=== PATIENT | female | born 2000 | race Caucasian/White ===

== ENCOUNTER 2022-07-16 14:40 | Emergency (ER) | payer BC, SELFPAY ==
[2022-07-16 14:52] VITALS: BP 133/95; PULSE 143; RESP 23; TEMP 36.8; O2SAT 99
[2022-07-16 15:07] VITALS: BP 127/89; PULSE 154; RESP 18; O2SAT 99
[2022-07-16 15:09] LABS: Basophils Percent Auto 0.2 % (0.2-1.2); Eosinophils Percent Auto 0.1 % (0-4.4); Hematocrit 42.7 % (37.0-47.0); Hemoglobin 14.5 g/dL (12.0-15.0); Immature Granulocyte Absolute 0.03 K/mm3 (0.00-0.031); Immature Granulocyte Percent A 0.3 % (0-0.5); Lymphocytes Percent Auto 2.7 % (18.3-44.2); Mean Corpuscular Hemoglobin 30.5 pg (26-34); Mean Corpuscular Volume 89.9 fl (80-100); Mean Platelet Volume 11.8 fl (7.4-10.4); Monocytes Absolute Auto 0.4 K/mm3 (0.1-0.6); Monocytes Percent Auto 3.9 % (2.6-8.5); Neutrophils Absolute Auto 10.3 K/mm3 (1.3-6.7); Neutrophils Percent Auto 92.8 % (45.5-73.1); Platelet Count Result 184 k/mm3 (150-375); Red Blood Count 4.75 M/mm3 (4.2-5.4); Red Cell Distribution Width 12.5 % (11.5-14.5); White Blood Count 11.1 K/mm3 (4.5-10.0)
[2022-07-16] MEDS: LACTATED RINGERS 1,000 ML 999 ML IV CONT ×2 (15:12→15:49)
--- NOTE | 2022-07-16 15:17 | ECG_ITS ---
Measurements Intervals [place] Rate: 129 P: 43 PA: 144 QRS: 36 QRSD: 76 T: -4 QT: 334 QTc: 489 Interpretive Statements SINUS TACHYCARDIA ST-T WAVE ABNORMALITY IN ANTEROLATERAL LEADS- CONSIDER ISCHEMIA BASELINE WANDER- II, V4-V6 ABNORMAL ECG NO PREVIOUS ECG AVAILABLE FOR COMPARISON Electronically Signed On 07-16-2022 21:56:43 [employer] by Caden Leal D.O.
[2022-07-16 15:19] LABS: Alanine Aminotransferase 24 U/L (6-35); Albumin Level 4.3 g/dL (3.5-5.1); Alkaline Phosphatase 99 U/L (38-126); Anion Gap 14 mmol/L (8-16); Aspartate Amino Transferase 24 U/L (14-36); Bilirubin,Total 0.9 mg/dL (0.2-1.3); Blood Urea Nitrogen 8 mg/dL (7-17); Calcium 9.1 mg/dL (8.4-10.2); Carbon Dioxide 19 mmol/L (22-30); Chloride 103 mmol/L (98-107); Estimated CRCL calculation 170 ml/min; Estimated Glomerular Filt Rate > 60; Glucose 114 mg/dL (65-110); Lipase 44 U/L (23-300); Potassium 3.5 mmol/L (3.4-5.0); Sodium 136 mmol/L (137-145)
--- NOTE | 2022-07-16 15:22 | ED.NAVMDI ---
HPI - Nausea/Vomiting/Diarrhea General Chief complaint: Nausea/Vomiting/Diarrhea Stated complaint: n/v since 0400, 12 weeks preg Time Seen by Provider: 07/16/22 14:54 History of Present Illness HPI Narrative: Patient is a 21-year-old G1, P0 female who is currently 12 weeks here for evaluation of nausea and vomiting over the past day. Patient states that she has been unable to keep down any p.o. for the past 12 hours. Also notes low-grade fevers at home and slight midline low back pain. Her CANDY SUPERVISOR is Dr. Yudith Norwood. She has had an ultrasound that confirmed IUP. No abdominal pain, diarrhea, vaginal bleeding, sudden gush of fluids. No new or suspicious foods or sick contacts. Related Data Allergies Allergy/AdvReac Type Severity Reaction Status Date / Time No Known Allergies Allergy Verified 07/16/22 15:06 Review of Systems Review of Systems: Gen: Denies fevers or chills Eyes: Denies eye pain or visual change ENT: Denies congestion Respiratory: Denies shortness of breath or cough CV: Denies chest pain or palpitations GI: Reports nausea and vomiting. Denies abdominal pain or diarrhea : denies burning, urgency, frequency or hematuria Musculoskeletal: Denies back pain or muscle pain Neuro: Denies numbness, tingling, weakness or focal weakness Skin: Denies rash Except as documented, all other systems reviewed and negative [facility] Past Medical History Medical History Pain of ulnar side of wrist Right wrist pain Family History Family History (Updated 05/14/21 @ 13:29 by Meche Weber, RT(R)) Other Hypertension Social History Social History (Updated 05/14/21 @ 13:29 by Meche Weber, RT(R)) Smoking status: Never smoker Alcohol intake: current Drinks per week: 6 Exam Narrative: APPEARANCE: Well appearing, no pain in distress, well-nourished. Head: Normocephalic and atraumatic. EYES: PERRLA/EOMI, conjunctivae clear NOSE: No nasal drainage EARS: External ear normal in appearance THROAT: Oropharynx is clear. Mucous membranes are moist. NECK: Supple. No adenopathy, no masses. RESPIRATORY: Airway patent, respirations nonlabored. Clear to auscultation bilaterally, no rales, rhonchi, wheezing. CARDIOVASCULAR: Tachycardic. Regular rhythm without murmurs, rubs, or gallops. ABDOMINAL: Normoactive bowel sounds. Soft, nontender, nondistended. No rebound tenderness or guarding. MUSCULOSKELETAL: Extremities are warm and well-perfused. Moves all extremities well. No edema. NEURO: Normal speech. No focal neurologic deficits. SKIN: Skin is warm and dry. No rashes. PSYCHIATRIC: Normal affect/mood.. Course Vital Signs Vital signs: Vital Signs Temperature 98.2 F 07/16/22 14:52 Pulse Rate 143 H 07/16/22 14:52 Respiratory Rate 23 H 07/16/22 14:52 Blood Pressure 133/95 H 07/16/22 14:52 Pulse Oximetry 99 07/16/22 14:52 Oxygen Delivery Room Air 07/16/22 14:52 Temperature 98.2 F 07/16/22 14:52 Pulse Rate 118 H 07/16/22 15:45 Respiratory Rate 20 07/16/22 15:45 Blood Pressure 121/86 07/16/22 15:45 Pulse Oximetry 100 07/16/22 15:45 Oxygen Delivery Room Air 07/16/22 14:52 MDM - Nausea/Vomiting/Diarrhea MDM Narrative Medical decision making narrative: 21-year-old G1, P0 female who is currently about 12 weeks here for evaluation of nausea and vomiting and low-grade fevers over the past day. No vaginal bleeding, abdominal pain or sudden gush of fluids. Patient arrives nontoxic-appearing but tachycardic in the 140s, afebrile. Patient is in sinus tachycardia on the EKG. She was given 2 L of fluids, Reglan and Benadryl with improvement of her symptoms; tolerating p.o. bedside ultrasound [place] [id number]. She has a white count of 11.1 and findings concerning for UTI on her urinalysis with 2+ leuks, white blood cells, 2+ blood. She also has 4+ ketones in her urine.
[2022-07-16 15:24] LABS: Appearance Urine Slightly Cloudy (Clear); Bilirubin Urine 1+ (Negative); Blood Urine 2+ (Negative); Color Urine Yellow (Yellow); Glucose Urine UA Negative (Negative); Ketones Urine 4+ mg/dL (Negative); Leukocyte Esterase Ur 2+ LEU/UL (Negative); Nitrate Urine Negative (Negative); Protein Urine 1+ mg/dL (Negative); Specific Grav Ur >= 1.030 (1.001-1.035)
[2022-07-16 15:38] LABS: Mucus Urine Heavy /lpf; RBC Urine 21-50 /hpf (0-2); Squamous Epithelial Cell Urine Many /hpf (Few); WBC Urine 21-30 /hpf
[2022-07-16] MEDS: diphenhydrAMINE HCl INJ 50 MG/ML VIAL 25 MG IV PUSH (15:38)
[2022-07-16] MEDS: METOCLOPRAMIDE HCL INJ 10 MG/2 ML VIAL IV PUSH (15:38)
[2022-07-16 15:40] LABS: Add Urine Microscopic? YES
[2022-07-16 15:45] VITALS: BP 121/86; PULSE 118; RESP 20; O2SAT 100
[2022-07-16 16:19] LABS: Influenza A QL RT-PCR Negative (Negative); Influenza B QL RT-PCR Negative (Negative); SARS-CoV-2 RNA PCR Negative
[2022-07-16 18:15] VITALS: BP 115/75; PULSE 110; RESP 16; O2SAT 100
== END 2022-07-16 18:30 | disposition home or self-care (01) ==
PROVIDERS: Emergency Medicine; Emergency Provider Physician Assistant; PCP Pediatrics
DX: O23.41 Unspecified infection of urinary tract in pregnancy, first trimester (principal); Z20.822 Contact with and (suspected) exposure to COVID-19; Z3A.12 12 weeks gestation of pregnancy
CPT/HCPCS: 36415; 80053; 81001; 83690; 84702; 85025; 87086; 87636; 93005; 96361; 96365; 96367; 96375; 99284; J0131; J0696; J1200; J2765; J7120

== ENCOUNTER 2023-01-12 10:09 | Outpatient (CLI) | payer BC, SELFPAY ==
[2023-01-12] VITALS (9 sets, daily range): BP systolic 132–149; BP diastolic 89–102; PULSE 71–91; RESP 18; TEMP 35.9; BMI 37.0
[2023-01-12 10:53] LABS: Basophils Percent Auto 0.1 % (0.2-1.2); Eosinophils Absolute Auto 0.1 K/mm3 (0-0.3); Eosinophils Percent Auto 0.7 % (0-4.4); Hematocrit 35.6 % (37.0-47.0); Hemoglobin 11.8 g/dL (12.0-15.0); Immature Granulocyte Absolute 0.03 K/mm3 (0.00-0.031); Immature Granulocyte Percent A 0.4 % (0-0.5); Lymphocytes Absolute Auto 1.43 K/mm3 (0.9-3.2); Lymphocytes Percent Auto 16.8 % (18.3-44.2); Mean Corpuscular HGB Conc 33.1 g/dl (32-36); Mean Corpuscular Hemoglobin 29.8 pg (26-34); Mean Corpuscular Volume 89.9 fl (80-100); Mean Platelet Volume 12.3 fl (7.4-10.4); Monocytes Absolute Auto 0.7 K/mm3 (0.1-0.6); Monocytes Percent Auto 8.2 % (2.6-8.5); Neutrophils Absolute Auto 6.3 K/mm3 (1.3-6.7); Neutrophils Percent Auto 73.8 % (45.5-73.1); Platelet Count Result 164 k/mm3 (150-375); Red Blood Count 3.96 M/mm3 (4.2-5.4); Red Cell Distribution Width 11.9 % (11.5-14.5); White Blood Count 8.5 K/mm3 (4.5-10.0)
[2023-01-12 11:06] LABS: Alanine Aminotransferase 31 U/L (6-35); Albumin Level 3.4 g/dL (3.5-5.1); Alkaline Phosphatase 248 U/L (38-126); Anion Gap 4 mmol/L (8-16); Aspartate Amino Transferase 27 U/L (14-36); Bilirubin,Total 0.5 mg/dL (0.2-1.3); Blood Urea Nitrogen 6 mg/dL (7-17); Calcium 8.7 mg/dL (8.4-10.2); Carbon Dioxide 23 mmol/L (22-30); Chloride 106 mmol/L (98-107); Estimated Glomerular Filt Rate > 60; Glucose 86 mg/dL (65-110); Potassium 3.9 mmol/L (3.4-5.0); Sodium 133 mmol/L (137-145); Uric Acid 4.4 mg/dL (2.5-7.5)
[2023-01-12 11:34] LABS: Appearance Urine Clear (Clear); Bacteria Urine None Seen /hpf; Bilirubin Urine Negative (Negative); Blood Urine 2+ (Negative); Color Urine Yellow (Yellow); Glucose Urine UA Negative (Negative); Ketones Urine Trace mg/dL (Negative); Leukocyte Esterase Ur 2+ LEU/UL (NEGATIVE); Nitrate Urine Negative (Negative); Non Pathogenic Casts 0-2; Protein Urine Negative (Negative); RBC Urine 0-2 /hpf (0-2); Specific Grav Ur 1.012 (1.001-1.035); Squamous Epithelial Cell Urine Occasional /hpf (Few); pH Urine 7.5 (5.0-9.0)
[2023-01-12 11:37] LABS: Creatinine Urine 83.7 mg/dL; Total Protein Urine Random 10 mg/dL; Ur Ttl Prot Creatinine Ratio 0.12 mg/mg (0-0.20)
[2023-01-12 11:44] LABS: Add Urine Microscopic? YES
--- NOTE | 2023-01-12 11:54 | PC.NURSE ---
Dr. Yudith Norwood informed of reactive NST, BP's, and lab results. Orders for discharge received. Pt to stop working.
--- NOTE | 2023-01-12 12:16 | PM.OBTRLD ---
OB - Triage/Final Diagnosis Visit Information Date of evaluation: 01/12/23 Reason for evaluation: other (htn) Comments/Additional reasons for admission: I have assessed the risk for this patient, Ana Yeung, and determined that she would benefit from observation care. Evaluation Laboratory results: Laboratory Tests 01/12/23 10:38 WBC 8.5 RBC 3.96 L Hgb 11.8 L Hct 35.6 L MCV 89.9 MCH 29.8 MCHC 33.1 RDW 11.9 Plt Count 164 MPV 12.3 H Immature Gran % (Auto) 0.4 Neut % (Auto) 73.8 H Lymph % (Auto) 16.8 L Wheeler % (Auto) 8.2 Eos % (Auto) 0.7 Baso % (Auto) 0.1 L Lymph # (Auto) 1.43 Wheeler # (Auto) 0.7 H Eos # (Auto) 0.1 Baso # (Auto) 0.0 Abs Immat Gran (auto) 0.03 Absolute Neuts (auto) 6.3 Absolute Nucleated RBC 0.0 Nucleated RBC % 0.0 Sodium 133 L Potassium 3.9 Chloride 106 Carbon Dioxide 23 Anion Gap 4 L BUN 6 L Creatinine 0.50 L Estim Creat Clear Calc Not Reportable Estimated GFR > 60 Glucose 86 Uric Acid 4.4 Calcium 8.7 Total Bilirubin 0.5 AST 27 ALT 31 Alkaline Phosphatase 248 H Total Protein 7.0 Albumin 3.4 L Urine Color Yellow Urine Appearance Clear Urine pH 7.5 Ur Specific [place] 1.012 Urine Protein Negative Urine Glucose (UA) Negative Urine Ketones Trace H Ur Blood (Man) 2+ H Urine Nitrate Negative Urine Bilirubin Negative Urine Urobilinogen 1.0 Ur Leukocyte Esterase 2+ H Urine RBC 0-2 Urine WBC 11-20 H Ur Squamous Epith Cells Occasional Urine Bacteria None seen Urine Casts 0-2 U Random Total Protein 10 Urine Creatinine 83.7 Vital signs: Vital Signs - 24 hr 01/12/23 10:38 01/12/23 10:46 01/12/23 11:01 Temperature Pulse Rate 71 82 75 Respiratory Rate Blood Pressure 146/91 H 140/90 149/93 H Blood Pressure [Left Arm] 01/12/23 11:16 01/12/23 11:30 01/12/23 11:45 Temperature Pulse Rate 89 79 83 Respiratory Rate Blood Pressure 139/102 H 144/89 H 132/89 Blood Pressure [Left Arm] 01/12/23 12:00 01/12/23 11:00 01/12/23 11:00 Temperature 96.6 F L Pulse Rate 91 78 Respiratory Rate 18 Blood Pressure 136/91 H Blood Pressure [Left Arm] 149/93 H 01/12/23 11:17 Temperature Pulse Rate 83 Respiratory Rate Blood Pressure Blood Pressure [Left Arm] 139/102 H
== END 2023-01-12 12:10 | disposition home or self-care (01) ==
LOC: ANHOBOP 10:14 → ANHOBPP 11:58
PROVIDERS: Visit Provider Obstetrics & Gynecology
DX: O16.9 Unspecified maternal hypertension, unspecified trimester (principal)
CPT/HCPCS: 36415; 59025; 80053; 81001; 82570; 84156; 84550; 85025; 87086; 99199

== ENCOUNTER 2023-01-18 05:50 | Inpatient (IN) | payer BC, SELFPAY ==
[2023-01-18] VITALS (147 sets, daily range): BP systolic 108–177; BP diastolic 45–128; PULSE 67–174; RESP 16; TEMP 36.4–37.8; O2SAT 93–100; BMI 36.6
--- NOTE | 2023-01-18 06:07 | PM.IMHP ---
H&P: HPI History of Present Illness Date/Time: 01/18/23 06:07 Chief Complaint: Gestational hypertension at term Narrative: a 22-year-old 1 para 0 with early visit confirming dates presenting at 39 weeks gestation for induction of labor. Blood pressures have been elevated. She has no headaches or blurred vision and labs have normal. They will be redrawn this. She is negative for group B strep PMFSH Past Medical History Medical History Pain of ulnar side of wrist Right wrist pain Family History Family History Father Hypertension Social History Social History Smoking status: Never smoker Alcohol intake: current Drinks per week: 6 Substance use: never Spiritual care concerns: No Meds Home Medications and Allergies Home Medications Medication Instructions Recorded Confirmed Type ergocalciferol (vitamin D2) 1,250 1,250 mcg PO WEEKLY 12/29/22 01/12/23 History mcg (50,000 unit) capsule (Vitamin D2) vit no.95-ferrous 1 tablet PO DAILY 12/29/22 01/12/23 History fumarate 28 mg-folic acid 800 mcg tablet () Allergies Allergy/AdvReac Type Severity Reaction Status Date / Time No Known Allergies Allergy Verified 07/16/22 15:06 Exam Const: General: cooperative, healthy appearing, comfortable and overweight Orientation/consciousness: oriented to person, oriented to place and oriented to time HENMT: Head: normal to inspection Resp: Effort & Inspection: normal respiratory effort Cardio: Rate: regular rate Rhythm: regular rhythm Heart sounds: S1 normal heart sound present and S2 normal heart sound present GI: Inspection: normal to inspection ( gravid soft uterus) Auscultation: normal bowel sounds : External Female Exam: normal external appearance Speculum Exam - Vagina: normal appearance of the vagina Speculum Exam - Cervix: normal appearance of the cervix ( 3/50/-2. FHTs reassuring) Assessment and Plan Assessment and plan (1) Term : Code(s): Z34.90 - Encounter for supervision of normal , unspecified, unspecified trimester Status: Acute (2) Gestational hypertension: Code(s): O13.9 - Gestational [-induced] hypertension without significant proteinuria, unspecified trimester Status: Acute Plan medical induction of labor. Spontaneous vaginal delivery is expected. She has an epidural candidate. PIH labs will be redrawn
[2023-01-18 06:45] LABS: Basophils Percent Auto 0.2 % (0.2-1.2); Eosinophils Absolute Auto 0.1 K/mm3 (0-0.3); Eosinophils Percent Auto 0.7 % (0-4.4); Hematocrit 35.1 % (37.0-47.0); Hemoglobin 11.6 g/dL (12.0-15.0); Immature Granulocyte Absolute 0.04 K/mm3 (0.00-0.031); Immature Granulocyte Percent A 0.4 % (0-0.5); Lymphocytes Absolute Auto 2.22 K/mm3 (0.9-3.2); Lymphocytes Percent Auto 20.3 % (18.3-44.2); Mean Corpuscular Hemoglobin 30.1 pg (26-34); Mean Corpuscular Volume 91.2 fl (80-100); Mean Platelet Volume 12.4 fl (7.4-10.4); Monocytes Percent Auto 9.2 % (2.6-8.5); Neutrophils Absolute Auto 7.6 K/mm3 (1.3-6.7); Neutrophils Percent Auto 69.2 % (45.5-73.1); Platelet Count Result 156 k/mm3 (150-375); Red Blood Count 3.85 M/mm3 (4.2-5.4); Red Cell Distribution Width 12.2 % (11.5-14.5); White Blood Count 10.9 K/mm3 (4.5-10.0)
[2023-01-18 07:04] LABS: Alanine Aminotransferase 27 U/L (6-35); Albumin Level 3.4 g/dL (3.5-5.1); Alkaline Phosphatase 254 U/L (38-126); Anion Gap 5 mmol/L (8-16); Aspartate Amino Transferase 27 U/L (14-36); Bilirubin,Total 0.5 mg/dL (0.2-1.3); Blood Urea Nitrogen 8 mg/dL (7-17); Calcium 9.5 mg/dL (8.4-10.2); Carbon Dioxide 23 mmol/L (22-30); Chloride 105 mmol/L (98-107); Estimated CRCL calculation 171 ml/min; Estimated Glomerular Filt Rate > 60; Glucose 95 mg/dL (65-110); Sodium 133 mmol/L (137-145)
[2023-01-18] MEDS: OXYTOCIN 30 UNITS/NS 500 ML 30 UNITS/500 ML BAG 6 UNITS IV CONT (07:55)
[2023-01-18] MEDS: LACTATED RINGERS 1,000 ML 125 ML IV CONT ×2 (07:56→17:46)
[2023-01-18 11:17] LABS: Uric Acid 4.6 mg/dL (2.5-7.5)
[2023-01-18] MEDS: LACTATED RINGERS 500 ML 999 ML IV CONT (11:47)
--- NOTE | 2023-01-18 12:46 | PM.OBPNLAB ---
Pain Control Date/time seen: 01/18/23 12:46 Pain control: tolerating well and epidural Pelvic Exam Dilation (cm): 4 Effacement (%): 80 station: -1 Amniotic membrane status: Leaking Comments: bp labile
[2023-01-18] MEDS: ONDANSETRON INJ 4 MG/2 ML VIAL IV PUSH (13:58)
[2023-01-18 15:56] LABS: Rapid Plasma Reagin Non-Reactive (NonReactive)
--- NOTE | 2023-01-18 16:03 | PM.OBPNLAB ---
Pain Control Date/time seen: 01/18/23 16:03 Pain control: tolerating well and epidural Pelvic Exam Dilation (cm): 7 Effacement (%): 100 station: -1 Amniotic membrane status: Leaking
[2023-01-18] MEDS: CALCIUM CARBONATE (TUMS) 500 MG (200 MG ELEMENTAL) (19:20)
--- NOTE | 2023-01-18 20:13 | PM.OBPNLAB ---
Pain Control Date/time seen: 01/18/23 20:13 Pain control: tolerating well and epidural Pelvic Exam Dilation (cm): 10 Effacement (%): 100 station: +2 Amniotic membrane status: Leaking
--- NOTE | 2023-01-18 21:12 | P.PCNOB_ITS ---
OB - Delivery Note Procedure Delivery date: 01/18/23 Procedure: mil Events: Gestational Hypertension Induction method: AROM Delivery augmentation: Pitocin Delivery monitor: External FHT and Internal Uterine Route of delivery: forceps (outlet) Episiotomy description: None Laceration Description: Perineal - 1st Degree Delivery repair: vicryl Quantitative Blood Loss (ml): 60 Anesthesia type: Epidural Disposition: Floor [place] Baby Date of : 01/18/23 Time of : 20:58 Weeks of gestation at delivery: 39 gender: Male Weight (pounds): 6 Weight (ounces): 15 presentation: vertex position: Right Occiput Anterior Cord Vessel Description: 3 Vessels score five minutes: 6 score ten minutes: 9
[2023-01-18] MEDS: OXYTOCIN 30 UNITS/NS 500 ML 30 UNITS/500 ML BAG 999 UNITS IV CONT (21:17)
[2023-01-18] MEDS: OXYTOCIN 30 UNITS/NS 500 ML 30 UNITS/500 ML BAG 125 UNITS IV CONT (21:51)
[2023-01-18] MEDS: BENZOCAINE 20% AER SPR (*SP) 56 GM CAN 1 SPRAY TOPICAL (23:28)
[2023-01-18] MEDS: WITCH HAZEL 40 PADS 1 PAD TOPICAL (23:28)
--- NOTE | 2023-01-18 23:50 | OBPPTRN ---
Patient transferred to post room #286 via wheelchair. Support person present. Oriented to unit, room, information board, rooming in, admission packet and security measures. Patient verbalizes understanding. with patient.
[2023-01-19] MEDS: IBUPROFEN 600 MG TABLET PO ×3 (00:15→17:54)
[2023-01-19] MEDS: ACETAMINOPHEN 325 MG TABLET 650 MG PO ×3 (03:56→17:53)
[2023-01-19 04:00] VITALS: BP 140/75; PULSE 84; RESP 16; TEMP 36.6; O2SAT 99
[2023-01-19 05:05] LABS: Hematocrit 29.9 % (37.0-47.0); Hemoglobin 9.8 g/dL (12.0-15.0)
--- NOTE | 2023-01-19 07:15 | PC.NURSE ---
PT introductions made and plan of care discussed per post , pain management, bottle feeding, daily care activities. PT sole recipient of such instructions and no barriers to learning identified at this time. PT received such instructions per one to one discussion, mom baby care guide and demonstrations this shift. PT verbalized understanding of such care.
--- NOTE | 2023-01-19 07:18 | PM.DS ---
DS: Admitting Diagnosis Discharge Date 01/20/2023 Admitting Diagnosis Term /gestational hypertension DS: Discharge Diagnosis Discharge Diagnosis (1) Gestational hypertension: Code(s): O13.9 - Gestational [-induced] hypertension without significant proteinuria, unspecified trimester Status: Acute (2) Term : Code(s): Z34.90 - Encounter for supervision of normal , unspecified, unspecified trimester Status: Acute DS: Summary Hospital Course Reason for hospitalization: induction of labor 39 weeks Hospital Course: patient underwent successful medical induction of labor on 01/18/2023. Her hospital course was unremarkable. Her blood pressures remained stable. She was up, breast-feeding, ambulating, voiding without difficulty, eating regular diet, and generally without complaints Time Spent with Patient Time attestation: Total time spent providing and/or coordinating discharge services: Exam Const: General: cooperative, healthy appearing, comfortable and well groomed Orientation/consciousness: oriented to person, oriented to place and oriented to time HENMT: Head: normal to inspection Resp: Effort & Inspection: normal respiratory effort Cardio: Rate: regular rate Rhythm: regular rhythm Heart sounds: S1 normal heart sound present and S2 normal heart sound present GI: Inspection: normal to inspection ( fundus firm below the umbilicus) DS: Data Data Completed and Pending Labs on day of discharge: Labs from last 24 hours 01/19/23 01/18/23 01/18/23 04:01 09:54 06:39 Hgb 9.8 L Hct 29.9 L Uric Acid 4.6 RPR Non-reactive Blood Type A Positive Antibody Screen Negative Discharge Plan Discharge Attending physician on discharge: Enmanuel Aranda Discharging Clinician: Enmanuel Aranda Patient Disposition: Home, Self-Care Activity: may shower, no straining and pelvic rest Diet: heart healthy Wound Care Instructions: follow printed instructions Patient Instructions: Antibiotic Form Stand Alone Forms: General Discharge Information Follow-up/Referrals: Enmanuel Aranda MD [Physician] - Discharge Medications: Continued ergocalciferol (vitamin D2) [Vitamin D2] 1,250 mcg (50,000 unit) Capsule 1,250 mcg PO WEEKLY PNV cmb#95-ferrous fumarate-FA [] 28 mg iron- 800 mcg Tablet 1 tablet PO DAILY Date of admission: 01/18/23 05:50 Primary Care Provider: PHYSICIAN,TRIM MACHINE ADJUSTER Admitting Provider: Enmanuel Aranda Attending physician on admission: Enmanuel Aranda Condition: Stable
--- NOTE | 2023-01-19 07:20 | PM.OBPNVD ---
OB - PN: Subj Subjective Date/time seen: 01/19/23 07:20 Patient comments: no complaints and pain well controlled baby status: doing well OB - PN: Obj Data Labs 01/19/23 04:01 01/18/23 06:39 Labs: Laboratory Results - last 24 hr 01/18/23 01/18/23 01/19/23 06:39 09:54 04:01 Hgb 9.8 L Hct 29.9 L Uric Acid 4.6 RPR Non-reactive Blood Type A Positive Antibody Screen Negative OB - PN A/P Plan day: 1 Plan: routine care Time Spent With Patient Time: Total time spent is greater than 50% in coordination of care (as documented) at patient's floor/unit and/or counseling patient: Time with patient: less than 15 minutes Exam Const: General: cooperative, healthy appearing and comfortable Nutritional Appearance: average body habitus Orientation/consciousness: oriented to person, oriented to place and oriented to time HENMT: Head: normal to inspection Resp: Effort & Inspection: normal respiratory effort Cardio: Rate: regular rate Rhythm: regular rhythm Heart sounds: S1 normal heart sound present and S2 normal heart sound present GI: Inspection: normal to inspection ( fundus firm below the umbilicus) Auscultation: normal bowel sounds : External Female Exam: normal external appearance Speculum Exam - Vagina: normal appearance of the vagina
[2023-01-19 07:30] VITALS: BP 126/83; PULSE 83; RESP 16; TEMP 36.7; O2SAT 98
--- NOTE | 2023-01-19 07:52 | WPDANLDPN2 ---
Anes-Prog Note L&D Date/Time: 01/19/23 07:52 Comfortable throughout: labor and delivery Neuraxial method: epidural Epidural/Spinal procedure site: clean & non-tender Neuro status: Neuro function grossly intact. Cardiovascular status: normal Respiratory status: normal Airway patency: baseline Mental status: baseline Post-Op hydration status: normal Vital Signs: Last Vital Signs Temp 36.6 C 01/19/23 04:00 Pulse 84 01/19/23 04:00 Resp 16 01/19/23 04:00 BP 140/75 01/19/23 04:00 Pulse Ox 99 01/19/23 04:00 O2 Del Method Room Air 01/18/23 23:50 Pain score (VAS): 1 I/O: Intake & Output 01/18/23 01/18/23 01/19/23 15:59 23:59 07:59 Intake Total 1000 240 Output Total 240 Balance 1000 0 Post-procedural complaints: none Patient feedback: Patient satisfied with anesthetic care.
[2023-01-19 11:30] VITALS: PULSE 83; RESP 16; O2SAT 98
[2023-01-19] MEDS: MULTIVIT/MIN/PREN/FOL AC/IRON TABLET 1 TAB PO (11:45)
[2023-01-19] MEDS: POLYSACCHARIDE IRON COMPLEX 150 MG CAPSULE PO ×2 (11:45→17:54)
[2023-01-19] MEDS: DOCUSATE SODIUM 100 MG CAPSULE PO ×2 (11:45→17:54)
[2023-01-19] MEDS: TETANUS,DIPHTHERIA,AC PERTUSSIS ADULT (0.5 ML) BOOSTRIX IM (11:46)
[2023-01-19 12:50] VITALS: BP 128/91; PULSE 76; RESP 18; TEMP 36.9; O2SAT 99
[2023-01-19 21:15] VITALS: BP 140/93; PULSE 75; RESP 16; TEMP 36.9; O2SAT 100
[2023-01-20] MEDS: IBUPROFEN 600 MG TABLET PO ×2 (01:30→09:33)
--- NOTE | 2023-01-20 05:49 | PM.OBPNVD ---
OB - PN: Subj Subjective Date/time seen: 01/20/23 05:49 Patient comments: no complaints and pain well controlled baby status: doing well OB - PN: Obj Data Labs 01/19/23 04:01 01/18/23 06:39 OB - PN A/P Plan day: 2 Plan: routine care, discharge home and follow up 6 weeks Time Spent With Patient Time: Total time spent is greater than 50% in coordination of care (as documented) at patient's floor/unit and/or counseling patient: Time with patient: less than 15 minutes Exam Const: General: cooperative, healthy appearing and comfortable Orientation/consciousness: oriented to person, oriented to place and oriented to time Resp: Effort & Inspection: normal respiratory effort Cardio: Rate: regular rate Rhythm: regular rhythm Heart sounds: S1 normal heart sound present and S2 normal heart sound present GI: Inspection: normal to inspection ( fundus firm below umbilicus)
[2023-01-20 09:10] VITALS: BP 137/84; PULSE 85; RESP 18; TEMP 36.7; O2SAT 100
[2023-01-20] MEDS: POLYSACCHARIDE IRON COMPLEX 150 MG CAPSULE PO (09:33)
[2023-01-20] MEDS: DOCUSATE SODIUM 100 MG CAPSULE PO (09:33)
--- NOTE | 2023-01-20 10:23 | PC.NURSE ---
Patient viewed the discharge video Mother & Baby Care, The First Two Weeks . Patient was given the opportunity and encouraged to ask questions. Patient verbalized understanding of information shared and has been given the mother/baby guide for home reference.
[2023-01-21 08:19] VITALS: BP 137/86; PULSE 80; RESP 18; TEMP 36.6; O2SAT 100
== END 2023-01-20 12:40 | disposition home or self-care (01) | DRG 807 ==
LOC: ANHLDR 05:59 → ANHOB2 01-19 00:36
PROVIDERS: Admitting Provider Obstetrics & Gynecology; Visit Provider Obstetrics & Gynecology
DX: O13.4 Gestational [pregnancy-induced] hypertension without significant proteinuria, complicating childbirth (principal); Z37.0 Single live birth; O70.0 First degree perineal laceration during delivery; Z3A.39 39 weeks gestation of pregnancy
CPT/HCPCS: 36415; 80053; 84550; 85014; 85018; 85025; 86592; 86850; 86900; 86901; 90715; A9270; J2405; J2590; J2795; J7120

== ENCOUNTER 2023-06-06 20:23 | Emergency (ER) | payer BC, SELFPAY ==
--- NOTE | ~2023-06-06 | XR_ITS ---
EXAMINATION: XR chest 1V portable DATE: 06/06/2023 22:56 INDICATION: Cough and fever. TECHNIQUE: A single frontal view of the chest was obtained. COMPARISON: None. FINDINGS: There is no pneumonia, pleural effusion, or pneumothorax. The heart size is normal. IMPRESSION: 1. No acute cardiopulmonary disease. Reviewed, dictated and finalized at location E.
[2023-06-06 20:31] VITALS: BP 159/80; PULSE 102; RESP 20; TEMP 38.9; O2SAT 100
[2023-06-06 21:10] LABS: Strep Group A RT-PCR NOT DETECTED (Negative)
[2023-06-06 21:21] LABS: Influenza A QL RT-PCR Negative (Negative); Influenza B QL RT-PCR Negative (Negative); RSV RNA, RT-PCR Negative (Negative); SARS-CoV-2 RNA PCR Negative (Negative)
[2023-06-06 22:10] VITALS: BP 121/88; PULSE 118; RESP 14; O2SAT 100
[2023-06-06 22:25] LABS: Glucose Point of Care 110 mg/dl (65-105)
--- NOTE | 2023-06-06 22:46 | ED.GENADULT ---
HPI - General Adult General Chief complaint: Upper Respiratory Infection Stated complaint: fever with ST - negative home covid test Time Seen by Provider: 06/06/23 22:16 Source: patient Mode of arrival: ambulatory Limitations: no limitations History of Present Illness HPI narrative: This is a 22-year-old female who presents to the ED with chief complaint of URI symptoms for the past 24 hours. Reports around 7:00 last night she started sore throat and feeling slight malaise. Reports she also started to develop fevers with very temporary relief with ibuprofen/Tylenol. States she was around someone with COVID last week and had a negative COVID test. Denies abdominal pain, chest pain, shortness of breath, urinary problems, headache, neck pain. Related Data Home Medications Medication Instructions Recorded Confirmed ergocalciferol (vitamin D2) 1,250 1,250 mcg PO WEEKLY 12/29/22 01/12/23 mcg (50,000 unit) capsule (Vitamin D2) vit no.95-ferrous 1 tablet PO DAILY 12/29/22 01/12/23 fumarate 28 mg-folic acid 800 mcg tablet () Allergies Allergy/AdvReac Type Severity Reaction Status Date / Time No Known Allergies Allergy Verified 06/06/23 20:24 Review of Systems Review of Systems: All systems as dictated in [facility] Past Medical History Medical History Pain of ulnar side of wrist Right wrist pain Family History Family History Father Hypertension Social History Social History Smoking status: Never smoker Second hand tobacco smoke exposure: No Alcohol intake: current Drinks per week: 6 Substance use: never Lack of Transportation: No Lack of Food: Never True Current Housing: I Have Housing Concerned About Future Housing: No Difficulty Paying Gas/Electric Bills: No Difficulty Paying for Meds: No Currently Unemployed: No Education: Trade/Vocational Certificate Difficulty w/ Childcare or Family Care: No Spiritual care concerns: No Exam Narrative: GENERAL: Well-appearing, well-nourished, and in no acute distress. HEAD: Normocephalic, atraumatic. EYES: PERRLA and EOMI. ENT: Mild posterior pharynx erythema without exudate. Mild tonsillar hypertrophy bilaterally. Uvula midline. Floor of mouth intact. No drooling or trismus. No muffled voice Nares clear, no rhinorrhea or epistaxis. Mucous membranes moist. Oropharynx without tonsillar hypertrophy exudate or other lesions. NECK: Supple. No adenopathy or masses. CHEST: No respiratory distress. Clear to auscultation. No wheezes rales or rhonchi HEART: Regular rate and rhythm. No murmur heard. Normal peripheral pulses. ABDOMEN: Soft, nontender, nondistended, normal active bowel sounds. MSK: Normal range of motion. No edema. SKIN: Warm, dry, no rash. NEURO: Alert and oriented x3. No focal deficits. PSYCH: Normal mood and affect. Course Course Emergency Course: Reevaluation 0030: Patient feeling better and is ready to go home Vital Signs Vital signs: Vital Signs Temperature 102.0 F H 06/06/23 20:31 Pulse Rate 102 H 06/06/23 20:31 Respiratory Rate 20 06/06/23 20:31 Blood Pressure 159/80 H 06/06/23 20:31 Pulse Oximetry 100 06/06/23 20:31 Oxygen Delivery Room Air 06/06/23 20:31 Temperature 100.6 F H 06/06/23 23:12 Pulse Rate 100 06/07/23 01:00 Respiratory Rate 14 06/07/23 01:00 Blood Pressure 117/83 06/07/23 01:00 Pulse Oximetry 99 06/07/23 01:00 Oxygen Delivery Room Air 06/06/23 20:31 Medical Decision Making [facility] Narrative Medical decision making narrative: This is a 22-year-old female who presents to the ED with chief complaints of sore throat and fevers. Vitals show initial slight tachycardia and febrile to 102.0 ?F. Exam shows mildly erythematous posterior oropharynx bu
[2023-06-06] MEDS: ACETAMINOPHEN 325 MG TABLET 650 MG PO (23:10)
[2023-06-06] MEDS: SODIUM CHLORIDE 0.9% IV 1,000 ML 999 ML IV CONT ×2 (23:11→23:27)
[2023-06-06 23:12] VITALS: BP 121/84; PULSE 114; RESP 14; TEMP 38.1; O2SAT 100
[2023-06-06 23:18] LABS: Basophils Percent Auto 0.1 % (0.2-1.2); Hematocrit 40.1 % (37.0-47.0); Hemoglobin 12.5 g/dL (12.0-15.0); Immature Granulocyte Absolute 0.04 K/mm3 (0.00-0.031); Immature Granulocyte Percent A 0.5 % (0-0.5); Lymphocytes Absolute Auto 0.79 K/mm3 (0.9-3.2); Lymphocytes Percent Auto 10.1 % (18.3-44.2); Mean Corpuscular HGB Conc 31.2 g/dl (32-36); Mean Corpuscular Hemoglobin 27.4 pg (26-34); Mean Corpuscular Volume 87.7 fl (80-100); Monocytes Absolute Auto 1.3 K/mm3 (0.1-0.6); Monocytes Percent Auto 16.1 % (2.6-8.5); Neutrophils Absolute Auto 5.7 K/mm3 (1.3-6.7); Neutrophils Percent Auto 73.2 % (45.5-73.1); Platelet Count Result 189 k/mm3 (150-375); Red Blood Count 4.57 M/mm3 (4.2-5.4); Red Cell Distribution Width 13.6 % (11.5-14.5); White Blood Count 7.8 K/mm3 (4.5-10.0)
[2023-06-06 23:30] LABS: Alanine Aminotransferase 40 U/L (6-35); Albumin Level 4.3 g/dL (3.5-5.1); Alkaline Phosphatase 80 U/L (38-126); Anion Gap 10 mmol/L (8-16); Aspartate Amino Transferase 45 U/L (14-36); Bilirubin,Total 0.9 mg/dL (0.2-1.3); Blood Urea Nitrogen 10 mg/dL (7-17); Carbon Dioxide 22 mmol/L (22-30); Chloride 102 mmol/L (98-107); Estimated CRCL calculation 136 ml/min; Estimated Glomerular Filt Rate > 60; Glucose 106 mg/dL (65-110); Potassium 3.8 mmol/L (3.4-5.0); Sodium 134 mmol/L (137-145)
[2023-06-07 00:11] VITALS: BP 118/74; PULSE 110; RESP 14; O2SAT 100
[2023-06-07 00:13] LABS: Monoscreen Negative (Negative); Negative Monotest Control Negative (Negative); Positive Monotest Control Positive (Positive)
[2023-06-07 01:00] VITALS: BP 117/83; PULSE 100; RESP 14; O2SAT 99
== END 2023-06-07 01:00 | disposition home or self-care (01) ==
PROVIDERS: Student in an Organized Health Care Education/Training Program; Emergency Provider Physician Assistant
DX: J06.9 Acute upper respiratory infection, unspecified (principal); Z20.822 Contact with and (suspected) exposure to COVID-19
CPT/HCPCS: 36415; 71045; 80053; 82948; 85025; 86308; 87637; 87651; 96360; 99283; A9270; J7030

== ENCOUNTER 2025-08-05 04:49 | Inpatient (IN) | payer BC, SELFPAY ==
[2025-08-05] VITALS (157 sets, daily range): BP systolic 92–147; BP diastolic 42–95; PULSE 69–156; RESP 18; TEMP 36.4–37.1; O2SAT 88–100; BMI 38.3
[2025-08-05 05:44] LABS: Hematocrit 33.7 % (37.0-47.0); Hemoglobin 10.6 g/dL (12.0-15.0); Immature Granulocyte Percent A 0.4 % (0-0.5); Lymphocytes Absolute Auto 2.15 K/mm3 (0.9-3.2); Mean Corpuscular HGB Conc 31.5 g/dl (32-36); Mean Corpuscular Hemoglobin 27.7 pg (26-34); Mean Corpuscular Volume 88.0 fl (80-100); Nucleated Red Blood Cells Absolute Auto 0.000 K/mm3 (0.0-0.012); Nucleated Red Blood Cells Perc 0.0 % (0.0-0.2); Platelet Count Result 186 k/mm3 (150-375); Red Blood Count 3.83 M/mm3 (4.2-5.4); White Blood Count 7.8 K/mm3 (4.5-10.0)
[2025-08-05] MEDS: LACTATED RINGERS 1,000 ML 125 ML IV CONT ×3 (05:45→15:16)
--- NOTE | 2025-08-05 05:48 | LDADM ---
This patient, Ana Hutson, was admitted to Labor/Delivery/Recovery 106 on 08/05/25 at 04:49. Plans for labor, pain management and were discussed with patient. Patient/family oriented to hospital policies and general routines including ID bracelet, bed and alarms, visiting hours, pain management, procedures, bathroom and other care routines, personal items, smoking policy, room service/diet and guest tray routines, security routines, and visiting hours. Patient/Family are encouraged to report perceived risks to care and to ask questions if they do not understand what they are told or what they should do. See [facility] for further documentation.
[2025-08-05] MEDS: OXYTOCIN 30 UNITS/NS 500 ML 30 UNITS/500 ML BAG IV CONT (06:12)
[2025-08-05 06:30] LABS: Syphilis IgG/IgM Antibody Non-Reactive (Nonreactive)
--- NOTE | 2025-08-05 09:26 | PM.IMHP2 ---
H&P: HPI History of Present Illness Date/Time: 08/05/25 09:26 Chief Complaint: Mild hypertension at term Narrative: 24-year-old 2 para 1 at 39 weeks gestation for induction of labor secondary to mildly elevated blood pressures. She is negative for group B strep in her has been otherwise uncomplicated. She had low risk noninvasive test passed her diabetic screen Review of Systems Review of Systems: All systems as dictated in [facility] Past Medical History Medical History Pain of ulnar side of wrist Right wrist pain Family History Family History Father Hypertension Social History Social History Smoking status: Never smoker Second hand tobacco smoke exposure: No Alcohol intake: current Drinks per week: 6 Substance use: never Lack of Transportation: No Lack of Food: Never True Current Housing: I Have Housing Concerned About Future Housing: No Difficulty Paying Gas/Electric Bills: No Difficulty Paying for Meds: No Currently Unemployed: No Education: High School Diploma/GED Difficulty w/ Childcare or Family Care: No Spiritual care concerns: No Meds Home Medications and Allergies Home Medications ?Medication ?Instructions ?Recorded ?Confirmed ?Type vit no.95-ferrous 1 tablet PO DAILY 12/29/22 08/05/25 History fumarate 28 mg-folic acid 800 mcg tablet () labetalol 200 mg tablet 200 mg PO Q12H 07/12/25 08/05/25 History ondansetron HCl 4 mg tablet 4 mg PO Q6H PRN nausea and vomiting 08/05/25 08/05/25 History Allergies Allergy/AdvReac Type Severity Reaction Status Date / Time No Known Allergies Allergy Verified 08/05/25 06:00 Vital Signs Vital Signs - 24 hr 08/05/25 05:42 08/05/25 05:46 08/05/25 05:47 Temperature Pulse Rate 96 Blood Pressure 107/73 Pulse Oximetry 98 97 Oxygen Delivery 08/05/25 05:48 08/05/25 05:52 08/05/25 05:57 Temperature Pulse Rate Blood Pressure Pulse Oximetry 99 98 Oxygen Delivery Room Air 08/05/25 06:01 08/05/25 06:02 08/05/25 06:07 Temperature Pulse Rate 86 Blood Pressure 125/83 Pulse Oximetry 100 98 Oxygen Delivery 08/05/25 06:12 08/05/25 06:13 08/05/25 06:15 Temperature 98.2 F Pulse Rate 79 Blood Pressure 127/84 Pulse Oximetry 98 Oxygen Delivery 08/05/25 07:20 08/05/25 07:22 08/05/25 07:24 Temperature 98.1 F Pulse Rate 74 Blood Pressure 135/80 Pulse Oximetry 96 Oxygen Delivery 08/05/25 08:45 08/05/25 08:47 Temperature 97.7 F Pulse Rate 77 Blood Pressure 139/83 Pulse Oximetry 96 Oxygen Delivery Exam Const: General: cooperative, healthy appearing and comfortable Nutritional Appearance: overweight Orientation/consciousness: oriented to person, oriented to place and oriented to time HENMT: Head: normal to inspection Resp: Effort & Inspection: normal respiratory effort Cardio: Rate: regular rate Rhythm: regular rhythm Heart sounds: S1 normal heart sound present and S2 normal heart sound present GI: Inspection: normal to inspection (Gravid soft uterus) : External Female Exam: normal external appearance Speculum Exam - Vagina: normal appearance of the vagina Speculum Exam - Cervix: normal appearance of the cervix (Cervix 2.5/-2/50%. AROM clear. FHTs reassuring) Results Labs Labs: Short CBC 08/05/25 Range/Units 05:29 WBC 7.8 (4.5-10.0) K/mm3 Hgb 10.6 L (12.0-15.0) g/dL Hct 33.7 L (37.0-47.0) % Plt Count 186 (150-375) k/mm3 Assessment and Plan Assessment and plan (1) Term : Code(s): Z34.90 - Encounter for supervision of normal , unspecified, unspecified trimester Status: Acute (2) Gestational hypertension: Code(s): O13.9 - Gestational [-induced] hypertension without significant proteinuria, unspecified trimester Status: Acute Plan Medical induction of labor. Spontaneous vaginal deliveries expected. She is an epidural candidate
--- NOTE | 2025-08-05 12:04 | PM.OBPNLAB ---
Pain Control Date/time seen: 08/05/25 12:04 Pain control: tolerating well Pelvic Exam Dilation (cm): 3 Effacement (%): 50 station: -2 Amniotic membrane status: Leaking
--- NOTE | 2025-08-05 14:42 | WPDANESEPP ---
Anes - Eval Pre Procedure Procedure: labor pain management Date/Time: 08/05/25 14:42 Surgeon: hari norwood Preop Diagnosis: pain during labor Pre Op Diagnosis: IOL Patient Data Age: 24 Gender: F Height: 1.65 m Weight: 104.5 kg Last Vital Signs Temp 98.1 F 08/05/25 14:26 Pulse 81 08/05/25 14:31 BP 128/83 08/05/25 14:31 Pulse Ox 99 08/05/25 14:42 O2 Del Method Room Air 08/05/25 05:48 Allergies Allergy/AdvReac Type Severity Reaction Status Date / Time No Known Allergies Allergy Verified 08/05/25 06:00 Home Medications ?Medication ?Instructions ?Recorded ?Confirmed ?Type vit no.95-ferrous 1 tablet PO DAILY 12/29/22 08/05/25 History fumarate 28 mg-folic acid 800 mcg tablet () labetalol 200 mg tablet 200 mg PO Q12H 07/12/25 08/05/25 History ondansetron HCl 4 mg tablet 4 mg PO Q6H PRN nausea and vomiting 08/05/25 08/05/25 History Laboratory Tests 08/05/25 08/05/25 05:29 05:35 WBC 7.8 K/mm3 (4.5-10.0) RBC 3.83 L M/mm3 (4.2-5.4) Hgb 10.6 L g/dL (12.0-15.0) Hct 33.7 L % (37.0-47.0) MCV 88.0 fl (80-100) MCH 27.7 pg (26-34) MCHC 31.5 L g/dl (32-36) RDW 12.5 % (11.5-14.5) Plt Count 186 k/mm3 (150-375) MPV 12.2 H fl (7.4-10.4) Immature Gran % (Auto) 0.4 % (0-0.5) Neut % (Auto) 60.9 % (45.5-73.1) Lymph % (Auto) 27.5 % (18.3-44.2) [place] % (Auto) 10.0 H % (2.6-8.5) Eos % (Auto) 0.9 % (0-4.4) Baso % (Auto) 0.3 % (0.2-1.2) Lymph # (Auto) 2.15 K/mm3 (0.9-3.2) [place] # (Auto) 0.8 H K/mm3 (0.1-0.6) Eos # (Auto) 0.1 K/mm3 (0-0.3) Baso # (Auto) 0.0 K/mm3 (0.0-0.1) Abs Immat Gran (auto) 0.03 K/mm3 (0.00-0.031) Absolute Neuts (auto) 4.8 K/mm3 (1.3-6.7) Absolute Nucleated RBC 0.000 K/mm3 (0.0-0.012) Nucleated RBC % 0.0 % (0.0-0.2) Syphilis IgG/IgM Ab Non-reactive (Nonreactive) Blood Type A Positive Antibody Screen Negative Patient hx anesthesia problems: none Family hx anesthesia problems: none Results Review: All pre-operative results and documents have been reviewed as part of the pre-operative evaluation. [facility] Past Medical History Medical History Pain of ulnar side of wrist Right wrist pain Family History Family History Father Hypertension Social History Social History Smoking status: Never smoker Second hand tobacco smoke exposure: No Alcohol intake: current Drinks per week: 6 Substance use: never Lack of Transportation: No Lack of Food: Never True Current Housing: I Have Housing Concerned About Future Housing: No Difficulty Paying Gas/Electric Bills: No Difficulty Paying for Meds: No Currently Unemployed: No Education: High School Diploma/GED Difficulty w/ Childcare or Family Care: No Spiritual care concerns: No Exam Day of Procedure 08/05/25 14:42
--- NOTE | 2025-08-05 15:23 | PM.OBPNLAB ---
Pain Control Date/time seen: 08/05/25 15:23 Pain control: tolerating well and epidural Pelvic Exam Dilation (cm): 4 Effacement (%): 75 station: -2 Amniotic membrane status: Leaking
[2025-08-05] MEDS: FAMOTIDINE 20 MG/2 ML VIAL IV PUSH (16:08)
--- NOTE | 2025-08-05 16:36 | PM.OBPNLAB ---
Pain Control Date/time seen: 08/05/25 16:36 Pain control: tolerating well and epidural Pelvic Exam Dilation (cm): 5 Effacement (%): 75 station: -2 Amniotic membrane status: Leaking
--- NOTE | 2025-08-05 18:42 | PM.OBPRVD ---
OB - Vaginal Delivery Note Procedure Delivery date: 08/05/25 Events: Gestational Hypertension Induction method: AROM Delivery augmentation: Pitocin Delivery monitor: External FHT, External Uterine and Internal Uterine Route of delivery: Episiotomy description: None Laceration Description: None Specimen: No Quantitative Blood Loss (ml): 63 Anesthesia type: Epidural Disposition: Floor Narrative: Patient was admitted for induction of labor at 39 weeks gestation secondary to elevated blood pressure artificial rupture membranes performed she progressed unremarkable 1st stage of labor had epidural anesthesia placed and eventually intrauterine pressure catheter which she was complete she pushed delivered head spontaneously in the LAUREN position. Anterior posterior shoulder delivered spontaneously. Cord clamped and 2 and cut and passed off the table given Apgars of 9 [id number]. Cord blood was drawn. Placenta delivered intact spontaneously. Twenty of Pitocin placed IV to help firm the uterus after inspecting the lateral sidewall tears lacerations were noted QBL was 63 Baby Date of : 08/05/25 Time of : 18:32 Gestational Age by Date: 39 Infant gender: Female Weight (pounds): 6 Weight (ounces): 14 presentation: vertex position: Right Occiput Anterior Placenta delivery description: Spontaneous Cord Vessel Description: 3 Vessels score one minute: 9 score five minutes: 9
--- NOTE | 2025-08-05 18:44 | PM.DS ---
DS: Admitting Diagnosis Discharge Date 08/07/2025 Admitting Diagnosis Term /gestational hypertension DS: Discharge Diagnosis Discharge Diagnosis (1) Term : Code(s): Z34.90 - Encounter for supervision of normal , unspecified, unspecified trimester Status: Acute (2) Gestational hypertension: Code(s): O13.9 - Gestational [-induced] hypertension without significant proteinuria, unspecified trimester Status: Acute DS: Summary Hospital Course Reason for hospitalization: Patient was admitted on 08/05/2025 for induction of labor and underwent spontaneous vaginal delivery with epidural anesthesia Hospital Course: Patient's hospital course unremarkable. She remained afebrile. She was up, voiding without difficulty, eating regular diet, ambulating, and generally without complaints Time Spent with Patient Time attestation: Total time spent providing and/or coordinating discharge services: Exam Const: General: cooperative, healthy appearing and comfortable Nutritional Appearance: overweight Orientation/consciousness: oriented to person, oriented to place and oriented to time HENMT: Head: normal to inspection Resp: Effort & Inspection: normal respiratory effort Cardio: Rate: regular rate Rhythm: regular rhythm Heart sounds: S1 normal heart sound present and S2 normal heart sound present GI: Inspection: normal to inspection (Gravid soft uterus) : External Female Exam: normal external appearance Speculum Exam - Vagina: normal appearance of the vagina Speculum Exam - Cervix: normal appearance of the cervix (Cervix 2.5/-2/50%. AROM clear. FHTs reassuring) DS: Data Data Completed and Pending Labs on day of discharge: Labs from last 24 hours 08/05/25 08/05/25 05:35 05:29 WBC 7.8 RBC 3.83 L Hgb 10.6 L Hct 33.7 L MCV 88.0 MCH 27.7 MCHC 31.5 L RDW 12.5 Plt Count 186 MPV 12.2 H Immature Gran % (Auto) 0.4 Neut % (Auto) 60.9 Lymph % (Auto) 27.5 [place] % (Auto) 10.0 H Eos % (Auto) 0.9 Baso % (Auto) 0.3 Lymph # (Auto) 2.15 [place] # (Auto) 0.8 H Eos # (Auto) 0.1 Baso # (Auto) 0.0 Abs Immat Gran (auto) 0.03 Absolute Neuts (auto) 4.8 Absolute Nucleated RBC 0.000 Nucleated RBC % 0.0 Syphilis IgG/IgM Ab Non-reactive Blood Type A Positive Antibody Screen Negative Discharge Plan Discharge Attending physician on discharge: Enmanuel Aranda Discharging Clinician: Enmanuel Aranda Patient Disposition: Home Activity: may shower, no straining and pelvic rest Diet: heart healthy Wound Care Instructions: follow printed instructions Patient Instructions: Antibiotic Form Patient Language: Qatari Stand Alone Forms: General Discharge Information Follow-up/Referrals: Enmanuel Aranda MD [Physician, INTERNET MEDIA PLANNER] Discharge Medications: Continued labetalol 200 mg tablet 200 mg PO Q12H ondansetron HCl 4 mg tablet 4 mg PO Q6H PRN (Reason: nausea and vomiting) PNV no.95-ferrous fumarate-FA [] 28 mg iron- 800 mcg Tablet 1 tablet PO DAILY Date of admission: 08/05/25 04:49 Primary Care Provider: PHYSICIAN,MANAGER TELEMARKETING Admitting Provider: Enmanuel Aranda Attending physician on admission: Enmanuel Aranda Condition: Stable
[2025-08-05] MEDS: OXYTOCIN 30 UNITS/NS 500 ML 30 UNITS/500 ML BAG 125 UNITS IV CONT (19:03)
[2025-08-05] MEDS: LABETALOL HCL 100 MG TABLET 200 MG PO (20:48)
[2025-08-05] MEDS: WITCH HAZEL 40 PADS 1 PAD TOPICAL (21:27)
--- NOTE | 2025-08-05 21:30 | OBPPTRN ---
Patient transferred to post room #286 via wheelchair. Support person present. Oriented to unit, room, information board, rooming in, admission packet and security measures. Patient verbalizes understanding.
[2025-08-06 00:20] VITALS: BP 128/69; PULSE 90; RESP 17; TEMP 37; O2SAT 99
[2025-08-06 05:21] LABS: Hematocrit 30.6 % (37.0-47.0); Hemoglobin 9.7 g/dL (12.0-15.0)
--- NOTE | 2025-08-06 07:02 | P.PNOB_ITS ---
OB - PN: Subj Subjective Date/time seen: 08/06/25 07:02 Patient comments: no complaints, pain well controlled, tolerating diet and flatus present [place] baby status: doing well OB - PN: Obj Data Labs 08/06/25 03:56 Labs: Laboratory Results - last 24 hr 08/06/25 03:56 Hgb 9.7 L Hct 30.6 L OB - PN A/P Assessment and Plan (1) Term : Code(s): Z34.90 - Encounter for supervision of normal , unspecified, unspecified trimester Status: Acute (2) Gestational hypertension: Code(s): O13.9 - Gestational [-induced] hypertension without significant proteinuria, unspecified trimester Status: Acute Plan routine care Time Spent With Patient Time: Total time spent is greater than 50% in coordination of care (as documented) at patient's floor/unit and/or counseling patient: Review of Systems 2 Review of Systems: All systems as dictated in HPI Exam 2 Const: General: cooperative, healthy appearing and comfortable Nutritional Appearance: overweight Orientation/consciousness: oriented to person, oriented to place and oriented to time HENMT: Head: normal to inspection Resp: Effort & Inspection: normal respiratory effort Cardio: Rate: regular rate Rhythm: regular rhythm Heart sounds: S1 normal heart sound present and S2 normal heart sound present GI: Inspection: normal to inspection (Gravid soft uterus) : External Female Exam: normal external appearance Speculum Exam - Vagina: normal appearance of the vagina Speculum Exam - Cervix: normal appearance of the cervix (Cervix 2.5/-2/50%. AROM clear. FHTs reassuring)
[2025-08-06 07:25] VITALS: BP 136/85; PULSE 80; RESP 12; TEMP 36.4; O2SAT 99
[2025-08-06] MEDS: DOCUSATE SODIUM 100 MG CAPSULE PO ×2 (08:20→17:56)
[2025-08-06] MEDS: ACETAMINOPHEN 325 MG TABLET 650 MG PO (08:20)
[2025-08-06] MEDS: IBUPROFEN 600 MG TABLET PO (08:20)
[2025-08-06 11:30] VITALS: BP 130/85; PULSE 82; RESP 12; TEMP 36.7; O2SAT 99
[2025-08-06 18:50] VITALS: BP 123/83; PULSE 75; RESP 16; TEMP 36.9; O2SAT 100
--- NOTE | 2025-08-07 06:51 | P.PNOB_ITS ---
OB - PN: Subj Subjective Date/time seen: 08/07/25 06:51 Patient comments: no complaints baby status: doing well [place] feeding status: exclusively bottle feeding OB - PN: Obj Data Labs 08/06/25 03:56 OB - PN A/P Assessment and Plan (1) Term : Code(s): Z34.90 - Encounter for supervision of normal , unspecified, unspecified trimester Status: Acute (2) Gestational hypertension: Code(s): O13.9 - Gestational [-induced] hypertension without significant proteinuria, unspecified trimester Status: Acute Plan home Time Spent With Patient Time: Total time spent is greater than 50% in coordination of care (as documented) at patient's floor/unit and/or counseling patient: Review of Systems 2 Review of Systems: All systems as dictated in HPI Exam 2 Const: General: cooperative, healthy appearing and comfortable Nutritional Appearance: overweight Orientation/consciousness: oriented to person, oriented to place and oriented to time HENMT: Head: normal to inspection Resp: Effort & Inspection: normal respiratory effort Cardio: Rate: regular rate Rhythm: regular rhythm Heart sounds: S1 normal heart sound present and S2 normal heart sound present GI: Inspection: normal to inspection (Gravid soft uterus) : External Female Exam: normal external appearance Speculum Exam - Vagina: normal appearance of the vagina Speculum Exam - Cervix: normal appearance of the cervix (Cervix 2.5/-2/50%. AROM clear. FHTs reassuring)
[2025-08-07 07:35] VITALS: BP 126/80; PULSE 92; RESP 16; TEMP 37; O2SAT 99
[2025-08-07] MEDS: DOCUSATE SODIUM 100 MG CAPSULE PO (08:56)
[2025-08-08 10:19] VITALS: BP 124/77; PULSE 88; RESP 16; TEMP 36.3; O2SAT 99
== END 2025-08-07 11:45 | disposition home or self-care (01) | DRG 807 ==
LOC: ANHLDR 18:45 → ANHOB2 21:31
PROVIDERS: Admitting Provider Obstetrics & Gynecology; Visit Provider Obstetrics & Gynecology
DX: O13.4 Gestational [pregnancy-induced] hypertension without significant proteinuria, complicating childbirth (principal); Z37.0 Single live birth; Z3A.39 39 weeks gestation of pregnancy
CPT/HCPCS: 36415; 85014; 85018; 85025; 86593; 86850; 86900; 86901; A9270; J2590; J2795; J7120